=== PATIENT | male | born 1970 | race Caucasian/White ===

== ENCOUNTER 2019-02-22 13:11 | Inpatient (IN) | payer OTHER ==
[~2019-02-22] VITALS: Ht 177.8 cm; Wt 108.5 kg
[2019-02-22] MEDS ORDERED: [UNRECOGNIZED DRUG - OTHER] PO (13:31)
[2019-02-22] MEDS ORDERED: PARKINSONS MED PO (13:31)
[2019-02-22] MEDS ORDERED: TOPI100T37 PO (13:31)
[2019-02-22] MEDS ORDERED: ZOLP5 PO (13:31)
[2019-02-22] MEDS ORDERED: RISP2 PO (13:31)
[2019-02-22] MEDS ORDERED: LAMO25 PO (13:31)
[2019-02-22] MEDS ORDERED: LITH300C3 PO (13:31)
[2019-02-22 14:51] LABS: BASOPHILS % (AUTO) 0.5 % (0.0-2.0); EOSINOPHILS % (AUTO) 1.7 % (1.0-6.0); HEMATOCRIT 42.6 % (41-53); HEMOGLOBIN 14.1 g/dL (13.5-17.5); LYMPHOCYTES # (AUTO) 1.9 K/uL (1.0-4.8); LYMPHOCYTES % (AUTO) 30.8 % (22.0-44.0); MEAN CORPUSCULAR HEMOGLOBIN 29.8 pg (26.0-34.0); MEAN CORPUSCULAR HGB CONC 33.1 G/dL (31.0-37.0); MEAN CORPUSCULAR VOLUME 90 fL (80-100); MONOCYTES # (AUTO) 0.4 K/uL (0.1-1.0); MONOCYTES % (AUTO) 6.3 % (2.0-9.0); NEUTROPHILS # (AUTO) 3.7 K/uL (1.8-7.7); NEUTROPHILS % (AUTO) 60.7 % (40.0-70.0); PLATELET COUNT (AUTO) 288 K/uL (150-450); RED BLOOD CELL COUNT(AUTO) 4.73 MIL/uL (4.50-5.90); RED CELL DISTRIBUTION WIDTH 14.2 % (11.5-14.5)
[2019-02-22 14:57] LABS: APPEARANCE,URINE CLEAR (CLEAR); BILIRUBIN,URINE NEGATIVE (NEGATIVE); GLUCOSE, URINE (UA) NEGATIVE (NEGATIVE); KETONES,URINE NEGATIVE (NEGATIVE); LEUKOCYTE ESTERASE ,URINE NEGATIVE (NEGATIVE); NITRATE,URINE NEGATIVE (NEGATIVE); OCCULT BLOOD,URINE NEGATIVE (NEGATIVE); PH,URINE 6.5 (5.0-8.0); PROTEIN,URINE NEGATIVE (NEGATIVE); UROBILINOGEN,URINE 0.2 mg/dL (<=1.0)
[2019-02-22 15:00] LABS: AMPHET/METH SCREEN,URINE NEGATIVE (NEGATIVE); BARBITURATE SCREEN, URINE NEGATIVE (NEGATIVE); BENZODIAZEPINES SCREEN,URINE NEGATIVE (NEGATIVE); CANNABINOID SCREEN,URINE NEGATIVE (NEGATIVE); COCAINE SCREEN,URINE NEGATIVE (NEGATIVE); METHADONE SCREEN, URINE NEGATIVE (NEGATIVE); OPIATE SCREEN,URINE NEGATIVE (NEGATIVE)
[2019-02-22 15:03] LABS: PHENCYCLIDINE SCREEN,URINE NEGATIVE (NEGATIVE)
[2019-02-22 15:06] LABS: INR 1.1 (0.9-1.1); PROTHROMBIN TIME 10.8 SEC (9.4-11.6)
[2019-02-22 15:12] LABS: ANION GAP 11 mmol/L (8-16); CALCIUM, TOTAL 9.3 mg/dL (8.8-10.5); CARBON DIOXIDE 23 mmol/L (22-29); CHLORIDE 104 mmol/L (98-107); CREATININE 1.13 mg/dL (0.60-1.30); GLOMERULAR FILTR. RATE CALC > 60 mL/min (>60); GLUCOSE,RANDOM 102 mg/dL (70-110); POTASSIUM 4.1 mmol/L (3.5-5.1); SODIUM SERUM 138 mmol/L (136-145); UREA NITROGEN, BLOOD 13 mg/dL (7-18)
[2019-02-22 15:18] LABS: ALANINE AMINOTRANSFERASE 42 U/L (12-78); ALBUMIN 3.8 g/dL (3.4-5.0); ALKALINE PHOSPHATASE 49 U/L (46-116); ASPARTATE AMINOTRANSFERASE 13 U/L (15-37); BILIRUBIN,TOTAL 0.5 mg/dL (0.1-1.0); TOTAL PROTEIN, SERUM 7.6 g/dL (6.4-8.2)
[2019-02-22 15:20] LABS: LITHIUM 0.61 mmol/L (0.60-1.20)
[2019-02-22] MEDS ORDERED: MORPHINE SULFATE 2 MG/ML SYRINGE IVP ONE (15:30)
[2019-02-22] MEDS ORDERED: ONDANSETRON HCL 4 MG/2 ML VIAL IVP ONE (15:30)
[2019-02-22 15:37] LABS: B-TYPE NATRIURETIC PEPTIDE 18 pg/mL (0-100)
[2019-02-22] MEDS ORDERED: ZOLPIDEM TARTRATE 5 MG TABLET PO PRN (16:45)
[2019-02-22] MEDS: ACETAMINOPHEN 325 MG TABLET PO PRN (19:08)
[2019-02-22] MEDS ORDERED: RisperiDONE 2 MG TABLET PO SCH (21:00)
[2019-02-22] MEDS ORDERED: LITHIUM CARBONATE 300 MG CAPSULE PO SCH (21:00)
[2019-02-22] MEDS: DOCUSATE SODIUM 100 MG CAPSULE PO SCH (22:02)
[2019-02-23 00:20] VITALS: BP 113/61
[2019-02-23] MEDS: ACETAMINOPHEN 325 MG TABLET PO PRN (00:25)
[2019-02-23] MEDS: HEPARIN SODIUM,PORCINE 5,000 UNITS/ML VIAL SQ SCH ×2 (00:25→09:32)
[2019-02-23] MEDS ORDERED: INFLUENZA VIRUS VACCINE QVS 2019-20 (3YR+)/PF 60 MCG/0.5 ML SYRINGE IM ONE (00:30)
[2019-02-23 04:06] VITALS: BP 101/55
[2019-02-23 07:32] VITALS: BP 109/64
[2019-02-23] MEDS ORDERED: RisperiDONE 2 MG TABLET PO SCH (09:00)
[2019-02-23] MEDS ORDERED: LITHIUM CARBONATE 300 MG CAPSULE PO SCH (09:00)
[2019-02-23] MEDS ORDERED: FAMOTIDINE 20 MG TABLET PO SCH (09:00)
[2019-02-23] MEDS: DOCUSATE SODIUM 100 MG CAPSULE PO SCH (09:32)
[2019-02-23] MEDS ORDERED: TraMADol HCL 50 MG TABLET PO ONE (09:45)
[2019-02-23 11:19] VITALS: BP 113/73
== END 2019-02-23 12:30 | disposition home or self-care (01) | DRG 204 ==
LOC: EMS 13:15 → 5S 18:47
PROVIDERS: ADMIT Internal Medicine; ATTEND Internal Medicine
DX: R55 Syncope and collapse (principal); F20.9 Schizophrenia, unspecified; G20 Parkinson's disease; E66.9 Obesity, unspecified; E78.00 Pure hypercholesterolemia, unspecified; F31.9 Bipolar disorder, unspecified; G43.909 Migraine, unspecified, not intractable, without status migrainosus; H54.8 Legal blindness, as defined in USA; Z68.34 Body mass index [BMI] 34.0-34.9, adult; Z79.899 Other long term (current) drug therapy; Z88.8 Allergy status to other drugs, medicaments and biological substances; Z90.49 Acquired absence of other specified parts of digestive tract
CPT/HCPCS: 70450; 70551; 87081; 93005; 93306; 93880; 97162; G0480; J1644; J2270; J2405

== ENCOUNTER 2025-02-23 05:20 | Emergency (ER) | payer MEDICARE, MEDICAID ==
[~2025-02-23] VITALS: Ht 177.8 cm; Wt 126.4 kg
[~2025-02-23 05:20] MED LIST: LAMO25TA36 PO; LEVO150 PO; LITH300C3 PO; RISP2TAB45 PO; TRAZ-252 PO
[2025-02-23 05:21] VITALS: TEMP 98.5
[2025-02-23 05:35] VITALS: BP 114/60; PULSE 66; RESP 18; O2SAT 98
[2025-02-23] MEDS ORDERED: HYDR-4062 PO (06:32)
== END 2025-02-23 07:25 | disposition home or self-care (01) ==
LOC: EMS 05:21
DX: M76.62 Achilles tendinitis, left leg (principal); E78.00 Pure hypercholesterolemia, unspecified; F20.9 Schizophrenia, unspecified; G20.A1 Parkinson's disease without dyskinesia, without mention of fluctuations; Z90.49 Acquired absence of other specified parts of digestive tract; Z88.6 Allergy status to analgesic agent; Z79.899 Other long term (current) drug therapy
CPT/HCPCS: 99283; Z7502